=== PATIENT | male | born 1965 ===

== ENCOUNTER → 2024-08-18 | Outpatient (CLI) | payer BC | END | disposition home or self-care (01) | LOC: LAB 16:15 → LAB SHORT 16:15 | DX: E11.9 Type 2 diabetes mellitus without complications (principal); Z79.4 Long term (current) use of insulin | CPT/HCPCS: 83036 ==

== ENCOUNTER → 2024-08-29 | Outpatient (CLI) | payer BC ==
[2024-09-02 02:05] LABS: B PERTUSSIS/PARAPERTUSS SOURCE Not Provided; BORD PARAPERTUSSIS BY PCR Not Detected; BORDETELLA PERTUSSIS BY PCR Not Detected
== END ==
LOC: LAB SHORT 13:16 → LAB 13:16
PROVIDERS: Family Medicine
DX: R05.8 Other specified cough (principal)
CPT/HCPCS: 87798

== ENCOUNTER → 2024-12-09 | Outpatient (CLI) | payer BC | END | disposition home or self-care (01) | LOC: LAB SHORT 07:33 → LAB 07:33 | DX: D22.5 Melanocytic nevi of trunk (principal); D49.2 Neoplasm of unspecified behavior of bone, soft tissue, and skin | CPT/HCPCS: 88305 ==